=== PATIENT | male | born 1940 | race Caucasian/White ===

== ENCOUNTER → 2018-12-03 | Day surgery (SDC) | payer MEDICARE ==
[2018-12-02 12:11] LABS: BASOPHILS # (AUTO) 0.1 (0.0-0.1); BASOPHILS % 0.8 % (0.0-1.0); EOSINOPHILS # (AUTO) 0.2 (0.0-0.4); EOSINOPHILS % 2.5 % (0.0-6.0); HEMATOCRIT 47.5 % (38.2-49.6); HEMOGLOBIN 15.8 g/dL (14.0-18.0); LYMPHOCYTES # (AUTO) 1.3 (1.0-3.2); LYMPHOCYTES % 15.1 % (18.0-39.1); MEAN CORPUSCULAR HEMOGLOBIN 29.9 pg (28-32); MEAN CORPUSCULAR HGB CONC 33.3 g/dL (31-35); MONOCYTES # (AUTO) 0.9 (0.2-0.8); MONOCYTES % 9.6 % (4.4-11.3); NEUTROPHILS # (AUTO) 6.4 (2.1-6.9); NEUTROPHILS % 71.7 % (38.7-80.0); PLATELET COUNT 234 x10e3/uL (140-360); RED BLOOD COUNT 5.28 x10e6/uL (4.3-5.7); RED CELL DISTRIBUTION WIDTH 13.3 % (11.7-14.4)
--- NOTE | 2018-12-02 12:56 | Diagnostic Imaging Report ---
EXAMINATION: CHEST 2 VIEWS INDICATION: ^PER PROTOCOL ^PRE ADMIT COMPARISON: None FINDINGS: PA and lateral views TUBES and LINES: None. LUNGS: Limited by low lung volumes and body habitus. Bibasilar hazy opacities PLEURA: No significant pleural effusion or pneumothorax. HEART AND MEDIASTINUM: The cardiomediastinal silhouette is enlarged, accentuated by low lung volumes. BONES AND SOFT TISSUES: No acute osseous lesion. Soft tissues are unremarkable. UPPER ABDOMEN: No free air under the diaphragm. IMPRESSION: Bibasilar hazy opacities, representing atelectasis and/or pneumonia in the appropriate clinical setting. Signed by: Dr. Bryce Parikh MD on 12/02/2018 12:53 PM
[~2018-12-03] MED LIST: BELLADONNA/OPIUM 30 MG SUPP RC ONE; BOTULINUM TOXIN TYPE A 100 UNIT VIAL IM ONE; CEFTRIAXONE SOD 1 GM/NS 50 ML 50 ML IV ONE; CENTRUM SILVER1 EAC3 PO; CETIRIZINE HCL10 MG PO; DEXAMETHASONE SOD PHOS INJ 4 MG/ML VIAL ONE; DILTIAZEM 24HR180 M1 PO; GENTAMICIN 120MG/NS 100ML 100 ML ONE; IOPAMIDOL 610MG/1ML 300 MG/ML VIAL IV ONE; LIDOCAINE HCL 2% LOCAL INJ 5 ML SDV VIAL INJ ONE; METAMUCIL PLUS1 EACH PO; METOPROLOL SUCC25 MG PO; ONDANSETRON HCL INJ 2MG/ML 2ML 2 MG/ML VIAL ONE; PROBIOTIC & AC1 EACH PO; PROPOFOL IV EMULSION 10 MG/ML 20 ML VIAL ONE; RANITIDINE HCL300 MG PO; SEVOFLURANE INHAL SOLN 250 ML PEN BTL ONE; TOLTERODINE TART2 MG PO; XARELTO20 MG PO
--- OUTSIDE RECORDS SUMMARY | 2018-12-03 07:20 | XMS REPORT | Clinical Summary ---
Author Author [facility] Organization [facility] Address Unknown Phone Unavailable Care Team Providers Care [employer] Report Developer Name Role Phone Idalia Appiah MD PCP Allergies No Known Allergies Medications End Date Status Medication Sig Dispensed Refills Start Date Active TOPROL XL 25 mg 24 hr Take 25 mg by 0 09/04/ tablet mouth every 6 morning. Active ranitidine (ZANTAC) 300 Take 300 mg 0 10/19/201 MG tablet by mouth 6 nightly. Active DILT-XR 180 mg 24 hr Take 180 mg 0 10/23/ capsule by mouth 6 every morning. Active lactobacillus comb no.10 Take 1 0 (PROBIOTIC) 20 billion capsule by cell capsule mouth every morning. Active aspirin (ECOTRIN) 81 MG Take 81 mg by 0 enteric coated tablet mouth nightly. Active rivaroxaban (XARELTO) 15 Take 15 mg by 0 mg tablet mouth nightly. Active rosuvastatin (CRESTOR) 10 Take 10 mg by 0 09/23/201 MG tablet mouth 7 nightly. Active jddwiauw-zqg-NB-lycopen-l Take 1 tablet 0 utein (CENTRUM SILVER by mouth ULTRA MEN'S) 300-600-300 every mcg tablet morning. Active polyethylene glycol Take 17 g by 0 (MIRALAX) 17 gram packet mouth nightly as needed for constipation. Active cetirizine (ZyrTEC) 10 MG Take 10 mg by 0 tablet mouth every morning. 11/07/2019 Active hydrocortisone 1 % cream Apply 30 g 0 topically 2 8 (two) times a day. For itching 11/07/2019 Active olopatadine (PATANOL) 0.1 Administer 1 5 mL 3 % ophthalmic solution drop to both 8 eyes 2 (two) times a day. Or ears BID for itching 12/10/2017 Discontinued PSYLLIUM SEED, WITH Take 1 packet 0 SUGAR, (METAMUCIL ORAL) by mouth nightly. 12/10/2017 Discontinued cetirizine (ZyrTEC) 10 MG Take 10 mg by 0 tablet mouth every morning. 12/10/2017 Discontinued mupirocin (BACTROBAN) 2 % Apply 1 0 cream application 7 topically 3 (three) times a day. Apply to affected area on the leg three times a day 11/07/2018 Discontinued hydrocortisone 1 % cream Apply 30 g 0 topically 2 8 (two) times a day. For itching 11/07/2018 Discontinued olopatadine (PATANOL) 0.1 Administer 1 5 mL 3 % ophthalmic solution drop to both 8 eyes 2 (two) times a day. Or ears BID for itching Active Problems Problem Noted Date Chest pain 12/10/2017 Hearing loss, sensorineural 06/28/2017 Hydrocele of testis 02/08/2017 Benign non-nodular prostatic hyperplasia without lower urinary tract 02/08/2017 symptoms Diarrhea 02/01/2017 Dehydration 02/01/2017 Paroxysmal atrial fibrillation 12/05/2016 Epididymitis 12/05/2016 Scrotal swelling 11/20/2016 Generalized abdominal pain 11/20/2016 Encounters Care Team Description Date Type Specialty Juanita Millan MD Excessive cerumen in both ear canals (Primary Dx); Dermatitis of external ear; Allergic rhinitis, unspecified seasonality, unspecified trigger 11/07/2018 Office Visit Otolaryngology Kuldeep Schneider MD Disease of lung 07/10/2018 Hospital Radiology Encounter Kuldeep Schneider MD Disease of lung (Primary Dx) 07/05/2018 Transcribe Access Orders Robert Aldrich MD Severely overweight; Dietary counseling; Secondary hypertension 05/07/2018 Hospital Radiology Encounter Juanita Millan MD Chronic non-seasonal allergic rhinitis, unspecified trigger (Primary Dx); Sensorineural hearing loss, bilateral; Bilateral impacted cerumen 04/28/2018 Office Visit Otolaryngology Robert Aldrich MD Severely overweight (Primary Dx); Dietary counseling; Secondary hypertension 04/19/2018 Transcribe Access Orders Kuldeep Schenider MD Other disorders of lung (CODE) 01/14/2018 Hospital Radiology Encounter Kuldeep Schneider MD Other disorders of lung (CODE) (Primary Dx) 01/09/2018 Transcribe Access Orders Contreras Hernandez MD Kohlnhofer, Matthew, MD Chest pain, unspecified type (Primary Dx); Chronic kidney disease, unspecified CKD stage; Atrial fibrillation, unspecified type 12/10/2017 Emergency General Internal Medicine - 12/11/2017 after 12/02/2017 Immunizations Name Dates Previously Given Next Due Influenza Trivalent 12/28/2016 Pneumococcal Conjugate 12/28/2016 13-Valent Family History Medical History Relation Name Comments Heart failure Father Cancer Mother Relation Name Status Comments Father (Age 93) Mother (Age 63) Social History Date Tobacco Use Types Packs/Day Years Used 1852 - 1962 Former Smoker 10 Smokeless Tobacco: Never Used Comments: Patient states was smoking 3 pack per day for 10 years. Alcohol Use Drinks/Week oz/Week Comments Yes 7 Standard 4.2 drinks or equivalent Sex Assigned at Date Recorded Not on file Industry Job Start Date Occupation Not on file Not on file Not on file Travel End Travel History Travel Start No recent travel history available. Last Filed Vital Signs Time Taken Vital Sign Reading 11/07/2018 9:39 AM [employer] Blood Pressure 150/73 11/07/2018 9:39 AM [employer] Pulse 84 12/11/2017 11:10 AM [employer] Temperature 36.6 C (97.8 F) 12/11/2017 11:10 AM [employer] Respiratory Rate 16 12/11/2017 11:10 AM [employer] Oxygen Saturation 97% - Inhaled Oxygen - Concentration 11/07/2018 9:39 AM [employer] Weight 91.6 kg (202 lb) 11/07/2018 9:39 AM [employer] Height 180.3 cm (5' 11") 11/07/2018 9:39 AM [employer] Body Mass Index 28.17 Plan of Treatment Health Maintenance Due Date Last Done Comments SHINGLES VACCINES (1 of 02/29/1988 2) PNEUMOCOCCAL 2003 POLYSACCHARIDE VACCINE AGE 65 AND OVER INFLUENZA VACCINE 06/25/2018 12/28/2016 PNEUMOCOCCAL-13 Completed 12/28/2016 Procedures Comments Procedure Name Priority Date/Time Associated Diagnosis CT CHEST WO CONTRAST Routine 07/10/2018 Disease of lung 12:24 PM CDT US ABDOMEN COMPLETE Routine 05/07/2018 Severely overweight 11:09 AM CDT Dietary counseling Secondary hypertension CT CHEST WO CONTRAST Routine 01/14/2018 Other disorders of lung 5:33 PM [employer] (CODE) MAGNESIUM LEVEL Routine 12/11/2017 4:00 AM [employer] ZZESTIMATED GFR Routine 12/11/2017 4:00 AM [employer] COMPREHENSIVE METABOLIC Routine 12/11/2017 PANEL 4:00 AM [employer] HC COMPLETE BLD COUNT Routine 12/11/2017 W/AUTO DIFF 4:00 AM [employer] TROPONIN Timed 12/10/2017 7:30 PM [employer] ECG ED PRELIMINARY Routine 12/10/2017 INTERPRETATION 6:03 PM [employer] ECHOCARDIOGRAM 2D Routine 12/10/2017 COMPLETE W MMODE SPECTRAL 5:05 PM [employer] COLOR DOPPLER ([id number]) TROPONIN Timed 12/10/2017 3:35 [address] [address] ABDOMEN PELVIS WO STAT 12/10/2017 CONTRAST 1:43 PM [employer] URINALYSIS SCREEN AND STAT 12/10/2017 MICROSCOPY, WITH REFLEX 12:19 PM [employer] TO CULTURE URINE CULTURE STAT 12/10/2017 12:19 PM [employer] INFLUENZA ANTIGEN Routine 12/10/2017 11:43 AM [employer] D-DIMER STAT 12/10/2017 11:41 AM [employer] ZZESTIMATED GFR STAT 12/10/2017 11:41 AM [employer] B NATRIURETIC PEPTIDE STAT 12/10/2017 11:41 AM [employer] TROPONIN STAT 12/10/2017 11:41 AM [employer] MAGNESIUM LEVEL STAT 12/10/2017 11:41 AM [employer] PHOSPHORUS LEVEL STAT 12/10/2017 11:41 AM [employer] COMPREHENSIVE METABOLIC STAT 12/10/2017 PANEL 11:41 AM [employer] HC COMPLETE BLD COUNT STAT 12/10/2017 W/AUTO DIFF 11:41 AM [employer] ECG 12-LEAD STAT 12/10/2017 11:28 AM [employer] XR CHEST 2 VW STAT 12/10/2017 11:13 AM [employer] after 12/02/2017 Results * CT Chest Wo Contrast (07/10/2018 12:24 PM CDT) Only the most recent of 2 results within the time period is included. Narrative Performed At EXAMINATION: RADIANT CT CHEST WO CONTRAST CLINICAL HISTORY: J98.4 Other disorders of lung, J98.4 TECHNIQUE: Multiple axial images were obtained from the lung apices to the lung bases without the administration of intravenous contrast.The lack of intravenous contrast reduces the sensitivity of detecting solid organ disease and evaluating vasculature. Coronal and sagittal reformats were obtained.CT imaging was performed with iterative reconstruction technique and/or automated exposure control to reduce radiation dose. COMPARISON: 01/14/2018 FINDINGS: Heart size is markedly enlarged. Coronary artery calcification is seen The aorta is ectatic. Ascending aorta is 3.8 cm..The pulmonary artery is within normal limits. Precarinal 2.6 x 1.4 cm precarinal enlarged lymph node is seen. Numerous small and tiny mediastinal lymph nodes are present. Tiny area of parenchymal density in the right apex is unchanged. This is unchanged from 06/26/2017. Continued monitoring could be performed at one year to evaluate for continued stability (stability to two years). Several hypodensities in the liver are compatible with cysts and are unchanged. Patient is status post cholecystectomy. The pancreas, adrenals, and kidneys are normal in appearance. The lesion is unremarkable. Suspicious osseous lesion is not seen. Degenerative changes of spine are seen. IMPRESSION: Enlarged mediastinal lymph node. Stable right pulmonary nodule. Follow-up can be performed to evaluate for continued stability. Cardiomegaly. Aortic ectasia. Procedure Note Interface, Radiology Results Incoming - 07/10/2018 1:19 PM CDT EXAMINATION: CT CHEST WO CONTRAST CLINICAL HISTORY: J98.4 Other disorders of lung, J98.4 TECHNIQUE: Multiple axial images were obtained from the lung apices to the lung bases without the administration of intravenous contrast.The lack of intravenous contrast reduces the sensitivity of detecting solid organ disease and evaluating vasculature. Coronal and sagittal reformats were obtained.CT imaging was performed with iterative reconstruction technique and/or automated exposure control to reduce radiation dose. COMPARISON: 01/14/2018 FINDINGS: Heart size is markedly enlarged. Coronary artery calcification is seen The aorta is ectatic. Ascending aorta is 3.8 cm.. The pulmonary artery is within normal limits. Precarinal 2.6 x 1.4 cm precarinal enlarged lymph node is seen. Numerous small and tiny mediastinal lymph nodes are present. Tiny area of parenchymal density in the right apex is unchanged. This is unchanged from 06/26/2017. Continued monitoring could be performed at one year to evaluate for continued stability (stability to two years). Several hypodensities in the liver are compatible with cysts and are unchanged. Patient is status post cholecystectomy. The pancreas, adrenals, and kidneys are normal in appearance. The lesion is unremarkable. Suspicious osseous lesion is not seen. Degenerative changes of spine are seen. IMPRESSION: Enlarged mediastinal lymph node. Stable right pulmonary nodule. Follow-up can be performed to evaluate for continued stability. Cardiomegaly. Aortic ectasia. Performing Organization Address City/State/Zipcode Phone Number [facility] [address] [place] [address] * US Abdomen Complete (05/07/2018 11:09 AM CDT) Narrative Performed At EXAM: US ABDOMEN COMPLETE [facility] CLINICAL DATA: 78 years Male E66.3 Overweight, Z71.3 Dietary counseling and surveillance, E66.3 Z71.3 I10 R14.0 COMPARISON: NONE. FINDINGS: There is a complex septated cyst along the anterior margin of the left lobe of the liver measuring approximately 3.5 x 2.8 x 2.9 cm. An additional left lobe cyst measuring 1.4 cm in maximum dimension is also noted. The liver elsewhere is echogenic and heterogeneous no solid lesions are identified. The main portal vein measures 9 mm which is within the range of normal. Flow is hepatopedal. The gallbladder has been removed. The common duct measures 8 mm which is necessary abnormal post cholecystectomy. The right kidney measures 11.5 cm length 4.5 cm AP dimension 5.8 cm in width. Cortical mantle thickness is 1.2 cm. The left kidney measures 10.2 cm in length 5.3 cm AP dimension 5.7 cm in width. Cortical mantle thickness is 1.3 cm. There is no contour deforming mass or obstruction involving either kidney. There is a lower pole cyst on the left measuring approximately 2 cm in maximum dimension. The spleen appears normal in size and texture. The visualized portion of the pancreas appears unremarkable although it is moderately echogenic. The aorta and vena cava are poorly visualized distally although they appear unremarkable to the limits of visualization. IMPRESSION: IMPRESSION: 1. Post cholecystectomy. 2. Septated cysts in the left lobe of the liver the largest of which measures 3.5 cm in maximum dimension. 3. Cyst lower pole of the left kidney measuring approximately 2 cm in maximum dimension. [id number] Procedure Note Hm Interface, Radiology Results Incoming - 05/07/2018 4:04 PM CDT EXAM: US ABDOMEN COMPLETE CLINICAL DATA: 78 years Male E66.3 Overweight, Z71.3 Dietary counseling and surveillance, E66.3 Z71.3 I10 R14.0 COMPARISON: NONE. FINDINGS: There is a complex septated cyst along the anterior margin of the left lobe of the liver measuring approximately 3.5 x 2.8 x 2.9 cm. An additional left lobe cyst measuring 1.4 cm in maximum dimension is also noted. The liver elsewhere is echogenic and heterogeneous no solid lesions are identified. The main portal vein measures 9 mm which is within the range of normal. Flow is hepatopedal. The gallbladder has been removed. The common duct measures 8 mm which is necessary abnormal post cholecystectomy. The right kidney measures 11.5 cm length 4.5 cm AP dimension 5.8 cm in width. Cortical mantle thickness is 1.2 cm. The left kidney measures 10.2 cm in length 5.3 cm AP dimension 5.7 cm in width. Cortical mantle thickness is 1.3 cm. There is no contour deforming mass or obstruction involving either kidney. There is a lower pole cyst on the left measuring approximately 2 cm in maximum dimension. The spleen appears normal in size and texture. The visualized portion of the pancreas appears unremarkable although it is moderately echogenic. The aorta and vena cava are poorly visualized distally although they appear unremarkable to the limits of visualization. IMPRESSION: IMPRESSION: 1. Post cholecystectomy. 2. Septated cysts in the left lobe of the liver the largest of which measures 3.5 cm in maximum dimension. 3. Cyst lower pole of the left kidney measuring approximately 2 cm in maximum dimension. [id number] Performing Organization Address City/State/Zipcode Phone Number [employer] [address] [place] [address] * Estimated GFR (12/11/2017 4:00 AM [employer]) Only the most recent of 2 results within the time period is included. GFR Non Af Amer 53 (A) mL/min/1.73 m2 [facility] DEPARTMENT OF PATHOLOGY AND GENOMIC MEDICINE GFR Af Amer 64 mL/min/1.73 m2 [facility] DEPARTMENT OF Comment: PATHOLOGY AND Chronic kidney disease: <60 GENOMIC MEDICINE mL/min/1.73m2 Kidney failure: <15 mL/min/1.73m2 The estimated GFR is calculated from the IDMS-traceable Modification of Diet in Renal Disease Equation. The accuracy of the calculation is poor when the creatinine is normal. Calculated values >90 mL/min/1.73m2 are not reported. This equation has not been validated in children (<18 years), women, the elderly (>70 years), or ethnic groups other than Caucasians and Americans. Specimen Plasma specimen Performing Organization Address City/State/Zipcode Phone Number [facility] [id number] [place] [address] PATHOLOGY [facility] * CBC with platelet and differential (12/11/2017 4:00 AM [employer]) Only the most recent of 2 results within the time period is included. WBC 8.06 4.50 - 11.00 k/uL [facility] DEPARTMENT OF PATHOLOGY AND GENOMIC MEDICINE RBC 4.84 4.40 - 6.00 m/uL [facility] DEPARTMENT OF PATHOLOGY AND GENOMIC MEDICINE HGB 14.6 14.0 - 18.0 g/dL [facility] DEPARTMENT OF PATHOLOGY AND GENOMIC MEDICINE HCT 43.1 41.0 - 51.0 % [facility] DEPARTMENT OF PATHOLOGY AND GENOMIC MEDICINE MCV 89.0 82.0 - 100.0 fL [facility] DEPARTMENT OF PATHOLOGY AND GENOMIC MEDICINE MCH 30.2 27.0 - 34.0 pg [facility] DEPARTMENT OF PATHOLOGY AND GENOMIC MEDICINE MCHC 33.9 31.0 - 37.0 g/dL [facility] DEPARTMENT OF PATHOLOGY AND GENOMIC MEDICINE RDW - SD 41.3 37.0 - 55.0 fL [facility] DEPARTMENT OF PATHOLOGY AND GENOMIC MEDICINE MPV 11.2 8.8 - 13.2 fL [facility] DEPARTMENT OF PATHOLOGY AND [facility] MEDICINE Platelet count 228 150 - 400 k/uL [facility] DEPARTMENT OF PATHOLOGY AND GENOMIC MEDICINE Nucleated RBC 0.00 /100 WBC [facility] DEPARTMENT OF PATHOLOGY AND GENOMIC MEDICINE Neutrophils 60.2 39.0 - 69.0 % [facility] DEPARTMENT OF PATHOLOGY AND GENOMIC MEDICINE Lymphocytes 20.8 (L) 25.0 - 45.0 % [facility] DEPARTMENT OF PATHOLOGY AND GENOMIC MEDICINE Monocytes 8.3 0.0 - 10.0 % [facility] DEPARTMENT OF PATHOLOGY AND GENOMIC MEDICINE Eosinophils 9.2 (H) 0.0 - 5.0 % [facility] DEPARTMENT OF PATHOLOGY AND [facility] MEDICINE Basophils 1.1 (H) 0.0 - 1.0 % [facility] DEPARTMENT PATHOLOGY AND GENOMIC MEDICINE Immature granulocytes 0.4Comment: "Immature 0.0 - 1.0 % [facility] DEPARTMENT granulocytes" (promyelocytes, PATHOLOGY AND myelocytes, metamyelocytes) [facility] Specimen Blood Performing Organization Address City/[facility] Phone Number [address] [place] [address] PATHOLOGY [facility] * Magnesium level (12/11/2017 4:00 AM [employer]) Only the most recent of 2 results within the time period is included. Magnesium 2.0 1.6 - 2.4 mg/dL [facility] PATHOLOGY AND GENOMIC MEDICINE Specimen Plasma specimen Performing Organization Address City/[facility] Phone Number [address] [place] [address] PATHOLOGY [facility] * Comprehensive metabolic panel (12/11/2017 4:00 AM [employer]) Only the most recent of 2 results within the time period is included. Sodium 139 135 - 148 mEq/L [facility] DEPARTMENT OF PATHOLOGY AND GENOMIC MEDICINE Potassium 4.0 3.5 - 5.0 mEq/L [facility] DEPARTMENT OF PATHOLOGY AND GENOMIC MEDICINE Chloride 104 98 - 112 mEq/L [facility] DEPARTMENT OF PATHOLOGY AND GENOMIC MEDICINE CO2 23 (L) 24 - 31 mEq/L [facility] DEPARTMENT OF PATHOLOGY AND GENOMIC MEDICINE Anion gap 12 7 - 15 mEq/L [facility] DEPARTMENT OF Comment: PATHOLOGY AND Starting from February GENOMIC MEDICINE , anion gap calculation no longer incorporates potassium. Please note the change. BUN 17 8 - 23 mg/dL [facility] DEPARTMENT OF PATHOLOGY AND GENOMIC MEDICINE Creatinine 1.3 (H) 0.7 - 1.2 mg/dL [facility] OF PATHOLOGY AND GENOMIC MEDICINE Glucose 155 (H) 65 - 99 mg/dL [facility] OF PATHOLOGY AND GENOMIC MEDICINE Calcium 8.7 (L) 8.8 - 10.2 mg/dL [facility] OF PATHOLOGY AND GENOMIC MEDICINE Protein 6.5 6.3 - 8.3 g/dL [facility] DEPARTMENT OF Comment: PATHOLOGY AND GENOMIC MEDICINE 4.6-7.0 g/dL 1 week 4.4-7.6 g/dL 7 months-1year 5.1-7.3 g/dL 1-2 years5.6-7 .5 g/dL >3 years6.0-8 .0 g/dL 18-150 6.3-8.3 g/dL Albumin 3.9 3.5 - 5.0 g/dL [facility] OF PATHOLOGY AND GENOMIC MEDICINE A/G ratio 1.5 0.7 - 3.8 [facility] OF PATHOLOGY AND GENOMIC MEDICINE Alkaline phosphatase 58 40 - 129 U/L [facility] DEPARTMENT OF PATHOLOGY AND GENOMIC MEDICINE AST 16 10 - 50 U/L [facility] DEPARTMENT OF PATHOLOGY AND GENOMIC MEDICINE ALT 16 5 - 50 U/L [facility] PATHOLOGY AND GENOMIC MEDICINE Total bilirubin 0.4 0.0 - 1.2 mg/dL [facility] OF PATHOLOGY AND GENOMIC MEDICINE Specimen Plasma specimen Performing Organization Address City/[facility] Phone Number [facility] DEPARTMENT [phone] [place] [address] PATHOLOGY AND GENOMIC MEDICINE * Troponin (12/10/2017 7:30 PM [employer]) Only the most recent of 3 results within the time period is included. Troponin <0.300 0.000 - 0.300 ng/mL [facility] DEPARTMENT OF Comment: PATHOLOGY AND 0.30 - 1.49 GENOMIC MEDICINE ng/mlMay indicate increased risk of acute coronary syndrome. >=1.5 ng/ml Consistent with acute myocardial infarction. The diagnostic value of a single normal or non-diagnostic result is questionable.Serial samples at 2-6 hour intervals are required to rule out acute myocardial injury. Specimen Plasma specimen Performing Organization Address City/[facility] [place] [address] [place] [address] PATHOLOGY AND GENOMIC MEDICINE * ECG ED Preliminary Interpretation - NOT AN ORDER (12/10/2017 6:03 PM [employer]) Narrative Performed At Contreras Hernandez MD 12/10/20176:03 PM ECG ED Preliminary Interpretation - Not an Order Performed by: CONTRERAS HERNANDEZ Authorized by: CONTRERAS EHRNANDEZ ECG reviewed by ED Physician in the absence of a hip hop artist: yes Interpretation: Interpretation: abnormal Rate: ECG rate:68 ECG rate assessment: normal Rhythm: Rhythm: atrial fibrillation QRS: QRS axis:Left Conduction: Conduction: normal ST segments: ST segments:Non-specific T waves: T waves: inverted Inverted:III * Echocardiogram complete w contrast and 3D if needed (12/10/2017 5:05 PM [employer]) Velocity Ratio (V1/V2) 0.79 m/s [facility] IVS,d 1.30 (A) 0.6 - 1.2 cm [facility] EF 44.96 % [facility] LA volume 59.0 cm3 [facility] LVPWD,d 1.30 cm [facility] AoV Mean PG 3.13 mmHg [facility] AV LVOT peak gradient 3.35 mmHg [facility] MV valve area p 1/2 5.44 cm2 [facility] method LVOT Diam,S 2.02 cm [facility] LVOT area 3.20 cm2 [facility] LVOT Vmax 0.91 m/s [facility] LVOT VTI 0.19 m [facility] AoV Peak PG 5.30 mmHg [facility] MV stenosis pressure 1/2 40.47 ms [facility] time LV Vol,s A2C 56.68 mL [facility] LV Systolic Volume Index 27.12 mL/m2 [facility] LV Vol,d A2C 112.83 mL [facility] LV Diastolic Volume Index 53.99 mL/m2 [facility] LA Volume Index 28.23 mL/m2 [facility] BSA 2.09 m2 [facility] AoV Area, Vmax 2.53 cm2 [facility] AoV Area, VTI 2.77 cm2 [facility] AoV Vmax 1.15 m/s [facility] BSA Zhou 2.12 m2 [facility] BSA Haycock 2.12 m2 [facility] IVS/LVPW,2D 1.00 [facility] LA Area d A4C 76 cm2 [facility] LV,d 5.25 cm [facility] LV,s 4.07 cm [facility] LV Vol,d A4C 109.03 ml [facility] LV Vol,s A4C 64.67 ml [facility] RVSP (TR) 35.30 mmHg [facility] TR Vpeak 2.75 mm/s [facility] BMI 27.20 kg/m2 [facility] RA pressure 5.00 mmHg [facility] TR pk grad 23.61 mmHg [facility] AoV area i VTI BSA Basil 1.33 cm2/m2 [facility] MR peak grad 76.72 mmHg [facility] RVSP 35.30 mmHg [facility] AR Press Half Time 920.53 ms [facility] LV SYS VOL 72.83 ml [facility] LV HORNER VOL 132.32 ml [facility] LA diam s 3.50 cm [facility] LA Vol MOD A4C 75.78 ml [facility] LV SI Teich 2D 28.52 ml/m2 [facility] LV SV Teich 2D 59.50 ml [facility] LV Vol s Teich PSAX 72.83 ml [facility] LVOT SI 28.77 ml/m2 [facility] AoV Cusp sep 1.98 [facility] Aortic Root 3.17 cm [facility] AoV Vmn 0.86 [facility] AR slope 1.53 [facility] Ar Vmax 4.86 [facility] IVS s 2D 1.40 [facility] LA Ao Ratio Mmode 1.12 [facility] LV FS Cube 2D 22.51 [facility] LV FS Teich 2D 22.51 [facility] NV End Horner Grad 2.32 [facility] NV End Diat Geoffrey 0.76 [facility] AR maxPG 94.35 [facility] D E excurs 1.20 [facility] E f slope 0.11 [facility] PV acc T slope 4.60 [facility] PV AT 107.27 msec [facility] AoV VTI 0.22 m [facility] LV EF,2D 53.46 % [facility] LV EF,A2C 49.76 % [facility] LV EF,A4C 40.68 % [facility] LV EF,BP 45.35 % [facility] Axel Patton,d A2C 7.25 cm [facility] Axel Patton,d A4C 7.69 cm [facility] Axel Patton,s A2C 6.40 cm [facility] Axel Patton,s A4C 6.78 cm [facility] LV SV,A2C 56.15 % [facility] LV SV,A4C 44.36 % [facility] LV SV,BP 51.65 % [facility] LV Vol,d BP 113.89 ml [facility] LV Vol,s BP 62.24 nl [facility] LV SI MOD BP BSA Basil 24.76 ml/m2 [facility] LV Vol Index s bpmod BSA 54.59 ml/m2 [facility] [place] PV Vmn 29.83 m/s [facility] MR Vmax 4.38 m/s [facility] LVOT Vmn 0.67 [facility] Pt Size 180.34 [facility] Pt Wt 88.45 [facility] Aov area Vmn 2.50 cm2 [facility] LVOT mean grad 2.01 mmHg [facility] AoV area I VMN bsa 1.20 cm2/m2 [facility] AR DT 3,174.25 msec [facility] AR pk grad 94.35 mmHg [facility] IVS pct thck PLAX 7.50 % [facility] LV SI Cube 2D 37.05 ml/m2 [facility] LV SV Cube 2D 77.30 ml [facility] LV vol d cube 2D 144.58 ml [facility] LV vol s cube 2D 67.28 ml [facility] LVPW pct thck PLAX 18.04 % [facility] LVPW s PLAX 1.54 cm [facility] Narrative Performed At [facility] Atrial fibrillation The left ventricle chamber size is normal. There is mild left ventricular concentric hypertrophy. Left Ventricular ejection fraction is 45 - 50%. Right ventricular size is normal. No pericardial effusion Mild mitral valve regurgitation There is mild sclerosis of the aortic valve leaflets. Unable to assess diastolic filling. Performing Organization Address City/State/Zipcode Phone Number [facility] [address] [place] [address] * CT Abdomen Pelvis Wo Contrast (12/10/2017 1:43 PM SUPPRESSION CREW LEADER) Narrative Performed At EXAMINATION:CT ABDOMEN PELVIS WO CONTRAST [facility] CLINICAL HISTORY:77 years Male abdominal painhernia TECHNIQUE:Multiple axial images of the abdomen and pelvis were obtained without intravenous administration of iodinated contrast. Sagittal and coronal computerized reformatted images were also obtained. The lack of intravenous contrast reduces the sensitivity of detecting solid organ disease. CT imaging was performed with iterative reconstruction techniques and/or automated exposure control to reduce radiation dose. COMPARISON:None. FINDINGS: There is mild dependent atelectasis at the lung bases. The liver contains a 2.7 x 2.3 cm bilobed cyst in the left lobe. There are additional smaller areas of low-attenuation within the liver too small to characterize with a probable 1 cm cyst in the caudate lobe. The spleen appears normal in size and homogeneous in texture. The adrenal glands, pancreas appear within normal limits. The right kidney is not obstructed no calculi are identified. There is mild stranding around the left kidney with an area of low attenuation near the lower pole with what may be a parapelvic cyst measuring nearly 2 cm. This is not definitively characterized without contrast administration. However it has a low level suspicion. 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 The appendix appears normal. There is diverticulosis moderate degree with no evidence of diverticulitis. There appears to havebeen a previous prostatectomy surgical clips in the area of the prostate. There are small bilateral inguinal hernias with fat in the defects slightly larger on the right. IMPRESSION: 1. Hepatic cysts the largest of which measures 2.7 x 2.3 cm in the left lobe with additional smaller probable cysts although some of these are too small to definitively characterize. 2. No obstructing calculi are identified on either side. 3. Probable parapelvic cyst lower pole of the left kidney measuring approximately 2 cm. 4. Post apparent prostatectomy 5. Small bilateral inguinal hernias with fat in the defects on both sides slightly greater on the right [id number] Procedure Note Hm Interface, Radiology Results Incoming - 12/10/2017 2:07 PM SUPPRESSION CREW LEADER EXAMINATION: CT ABDOMEN PELVIS WO CONTRAST CLINICAL HISTORY:77 years Male abdominal pain hernia TECHNIQUE: Multiple axial images of the abdomen and pelvis were obtained without intravenous administration of iodinated contrast. Sagittal and coronal computerized reformatted images were also obtained. The lack of intravenous contrast reduces the sensitivity of detecting solid organ disease. CT imaging was performed with iterative reconstruction techniques and/or automated exposure control to reduce radiation dose. COMPARISON: None. FINDINGS: There is mild dependent atelectasis at the lung bases. The liver contains a 2.7 x 2.3 cm bilobed cyst in the left lobe. There are additional smaller areas of low-attenuation within the liver too small to characterize with a probable 1 cm cyst in the caudate lobe. The spleen appears normal in size and homogeneous in texture. The adrenal glands, pancreas appear within normal limits. The right kidney is not obstructed no calculi are identified. There is mild stranding around the left kidney with an area of low attenuation near the lower pole with what may be a parapelvic cyst measuring nearly 2 cm. This is not definitively characterized without contrast administration. However it has a low level suspicion. 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 The appendix appears normal. There is diverticulosis moderate degree with no evidence of diverticulitis. There appears to have been a previous prostatectomy surgical clips in the area of the prostate. There are small bilateral inguinal hernias with fat in the defects slightly larger on the right. IMPRESSION: 1. Hepatic cysts the largest of which measures 2.7 x 2.3 cm in the left lobe with additional smaller probable cysts although some of these are too small to definitively characterize. 2. No obstructing calculi are identified on either side. 3. Probable parapelvic cyst lower pole of the left kidney measuring approximately 2 cm. 4. Post apparent prostatectomy 5. Small bilateral inguinal hernias with fat in the defects on both sides slightly greater on the right [id number] Performing Organization Address City/State/Zipcode Phone Number [facility] [address] [place] [address] * Urinalysis screen and microscopy, with reflex to culture (12/10/2017 12:19 PM SUPPRESSION CREW LEADER) Specimen site Clean catch [facility] DEPARTMENT OF PATHOLOGY AND GENOMIC MEDICINE Color, UA Yellow [facility] DEPARTMENT OF PATHOLOGY AND GENOMIC MEDICINE Appearance, UA Clear [facility] DEPARTMENT OF PATHOLOGY AND GENOMIC MEDICINE Specific gravity, UA 1.011 1.001 - 1.035 [facility] DEPARTMENT OF PATHOLOGY AND GENOMIC MEDICINE pH, UA 5.0 5.0 - 8.5 [facility] DEPARTMENT OF PATHOLOGY AND GENOMIC MEDICINE Protein, UA Negative Negative [facility] DEPARTMENT OF PATHOLOGY AND GENOMIC MEDICINE Glucose, UA Negative Negative [facility] DEPARTMENT OF PATHOLOGY AND GENOMIC MEDICINE Ketones, UA Negative Negative [facility] DEPARTMENT OF PATHOLOGY AND GENOMIC MEDICINE Bilirubin, UA Negative Negative [facility] DEPARTMENT OF PATHOLOGY AND GENOMIC MEDICINE Blood, UA Small (A) Negative [facility] DEPARTMENT OF PATHOLOGY AND GENOMIC MEDICINE Nitrite, UA Negative Negative [facility] DEPARTMENT OF PATHOLOGY AND GENOMIC MEDICINE Urobilinogen, UA Negative <2.0 [facility] DEPARTMENT OF PATHOLOGY AND GENOMIC MEDICINE Leukocyte esterase, UA Negative Negative [facility] DEPARTMENT OF PATHOLOGY AND GENOMIC MEDICINE WBC, UA None seen 0 - 1 /HPF [facility] DEPARTMENT OF PATHOLOGY AND GENOMIC MEDICINE RBC, UA 0-5 0 - 1 /HPF [facility] DEPARTMENT OF PATHOLOGY AND GENOMIC MEDICINE Bacteria, UA None seen None seen [facility] DEPARTMENT OF PATHOLOGY AND GENOMIC MEDICINE Yeast, UA None seen [facility] DEPARTMENT OF PATHOLOGY AND GENOMIC MEDICINE Yeast with pseudohyphae, None seen [facility] DEPARTMENT OF UA PATHOLOGY AND GENOMIC MEDICINE Specimen Urine Performing Organization Address [facility] Phone Number [address] [place] [address] PATHOLOGY AND GENOMIC MEDICINE * Urine culture (12/10/2017 12:19 PM SUPPRESSION CREW LEADER) Urine culture SEE COMMENTComment: [facility] DEPARTMENT OF Bacteriuria screen negative. PATHOLOGY AND [facility] Specimen Urine Performing Organization Address [facility] [place] Phone Number [address] [place] [address] PATHOLOGY AND [facility] * Influenza antigen (12/10/2017 11:43 AM SUPPRESSION CREW LEADER) Influenza antigen Negative for Influenza A/B [facility] DEPARTMENT OF antigen. PATHOLOGY AND Comment: GENOMIC MEDICINE Specimen Information Specimen Source: Nares Specimen Site: Right and left lobes Specimen Nares - Right and left lobes Performing Organization Address [facility] Phone Number [address] [place] [address] PATHOLOGY AND GENOMIC MEDICINE * D-dimer (12/10/2017 11:41 AM SUPPRESSION CREW LEADER) D-dimer <0.27 0.00 - 0.40 ug/mL FEU [facility] DEPARTMENT OF Comment: PATHOLOGY AND Units are ug/ml Fibrinogen [facility] Equivalent Unit. When combined with low clinical probability, D-dimer results of less than 0.5 ug/ml FEU have a good negativepredictive value in excluding PE or DVT. For D-dimer results greater than 0.5ug/ml FEU further testing is indicated if PE or DVT is suspectedclinically. Elevated D-dimer results have been reported in DVT, PE, and DIC cases and may indicate the presence of a clot. D-dimer results may be elevated due to old age, , inflammatory diseases, trauma, post-operative states, sepsis, and malignancies. Specimen Blood Performing Organization Address [facility] Phone Number [address] [place] [address] PATHOLOGY AND [facility] * Phosphorus level (12/10/2017 11:41 AM SUPPRESSION CREW LEADER) Phosphorus 3.4 2.4 - 4.5 mg/dL [facility] PATHOLOGY AND [facility] Specimen Plasma specimen Performing Organization Address [facility] [place] Phone Number [address] [place] [address] PATHOLOGY AND [facility] * B natriuretic peptide (12/10/2017 11:41 AM SUPPRESSION CREW LEADER) BNP 184 (H) 0 - 100 pg/mL [facility] OF PATHOLOGY AND [facility] Specimen Blood Performing Organization Address [facility] [place] Phone Number [address] [place] [address] PATHOLOGY AND [facility] * ECG 12 lead (12/10/2017 11:28 AM SUPPRESSION CREW LEADER) Ventricular rate 68 [facility] Atrial rate 75 [facility] QRSD interval 110 [facility] QT interval 388 [facility] QTC interval 412 [facility] MUSE QRS axis 1 -38 [facility] T wave axis 1 [facility] MUSE EKG impression Atrial fibrillation-Left axis [facility] MUSE deviation-Minimal voltage criteria for LVH, may be normal variant-Nonspecific ST abnormality , probably digitalis effect-Abnormal ECG-In automated comparison with ECG of 25-SEP-2017 12:17,-No significant change was found- Performing Organization Address [facility] Phone Number [facility] MUSE [address] [place] [address] * XR Chest 2 Vw (12/10/2017 11:13 AM SUPPRESSION CREW LEADER) Narrative Performed At EXAMINATION:XR CHEST 2 VW [facility] CLINICAL HISTORY:Chest Pain COMPARISON:09/25/2017 IMPRESSION: 1.The heart size is slightly enlarged. The aorta is atherosclerotic. 2.There is no evidence of pulmonary edema. There are no focal consolidations or effusions. 3.Marginal osteophytes are seen in the midthoracic spine. 4.Status post cholecystectomy. Procedure Note Hm Interface, Radiology Results Incoming - 12/10/2017 11:18 AM SUPPRESSION CREW LEADER EXAMINATION: XR CHEST 2 VW CLINICAL HISTORY: Chest Pain COMPARISON: 09/25/2017 IMPRESSION: 1. The heart size is slightly enlarged. The aorta is atherosclerotic. 2. There is no evidence of pulmonary edema. There are no focal consolidations or effusions. 3. Marginal osteophytes are seen in the midthoracic spine. 4. Status post cholecystectomy. Performing Organization Address City/State/Zipcode Phone Number [facility] [address] [place] [address] after 12/02/2017 Insurance Payer Benefit Subscriber ID Type Phone Address Plan / Group AETNA MEDICARE AETNA xxxxxxxx HMO MEDICARE HMO/PPO [facility] Advance Directives Patient has advance care planning documents, and code status on file. For more i nformation, please contact: Charlie Serrano [address] [place] [address] Date Inactivated Comments Code Status Date Activated 12/11/2017 7:01 PM Full Code 12/10/2017 3:33 PM Code Status decision reached by: Patient
--- OUTSIDE RECORDS SUMMARY | 2018-12-03 07:20 | XMS REPORT ---
Author Author [facility] Address Unknown Phone Unavailable Care Team Providers Care Calender Wind Up Tender Name Role Phone YOEL MAJOR Unavailable Unavailable Problems This patient has no known problems. Allergies, Adverse Reactions, Alerts This patient has no known allergies or adverse reactions. Medications This patient has no known medications. Results Test Description Test Time Test Comments Text Results Atomic Results Result Comments CHEST 2 VIEWS 2018-12-02 12:51:00 [place] [address] Patient Name: JULIAN PARSONS MR #: [id number] : 1940 Age/Sex: 78/M Req #: [id number] Adm Physician: Ordered by: YOEL MAJOR MD Report #: [id number] Location: OR Room/Bed: Procedure: [id number] DX/CHEST 2 VIEWS Exam Date: Exam Time: REPORT STATUS: Signed EXAMINATION: CHEST 2 VIEWS INDICATION: PER PROTOCOL PRE ADMIT COMPARISON: None FINDINGS: PA and lateral views TUBES and LINES: None. LUNGS: Limited by low lung volumes and body habitus. Bibasilar hazy opacities PLEURA: No significant pleural effusion or pneumothorax. HEART AND MEDIASTINUM: The cardiomediastinal silhouette is enlarged, accentuated by low lung volumes. BONES AND SOFT TISSUES: No acute osseous lesion. Soft tissues are unremarkable. UPPER ABDOMEN: No free air under the diaphragm. IMPRESSION: Bibasilar hazy opacities, representing atelectasis and/or pneumonia in the appropriate clinical setting. Signed by: Dr. Bryce Parikh MD on 12/02/2018 12:53 PM Dictated By: BRYCE PARIKH MD [id number] Transcribed By: DAKSHA on 12/02/18 1253 COPY TO: YOEL MAJOR MD
[2018-12-03 11:15] VITALS: BP 149/85
--- NOTE | 2019-01-19 09:17 | Operative Report ---
DATE OF PROCEDURE: 12/03/2018 SURGEON: Jeronimo Wadsworth MD PREOPERATIVE DIAGNOSES: 1. Refractory urge incontinence. 2. Hyperreflexic bladder. POSTOPERATIVE DIAGNOSES: 1. Refractory urge incontinence. 2. Hyperreflexic bladder. OPERATION PERFORMED: 1. Cystourethroscopy with bilateral ureteral catheterization and retrograde ureteropyelography ( performed for overactive bladder). 2. Interpretation of retrograde ureteropyelography. 3. Supervision of fluoroscopy, no radiologist present. 4. Cystourethroscopy with intravesical injection of Botox (several procedures performed for the diagnosis of the refractory incontinence). ANESTHESIA: General. COMPLICATIONS: None. CLINICAL SUMMARY: Gunnar Taylor is an 78-year-old man. He is status radical retropubic prostatectomy in 2002. The patient has had refractory incontinence that is mixed in nature. He also has a hyperreflexic bladder. He is brought for the above procedures. He is aware of the risks of bleeding, infection, injury to adjacent structures, and need for additional procedures and elected to proceed. PROCEDURE IN DETAIL: Informed consent was verified. Gunnar Taylor was preoperatively identified, taken to the operating room, and placed on the cystoscopy table in supine position. Anesthesia was uneventfully begun. The patient was then carefully and gently repositioned in dorsal lithotomy position with all pressure points well padded. His genitalia were prepared and draped in usual sterile fashion. A 22.5-Indonesian cystoscope sheath with a visual obturator in place was atraumatically inserted into the patient's urethra. It was guided unremarkably into urethra through the normal sphincter region that appeared to be intact through a wide open anastomosis and into the patient's bladder, where panendoscopy revealed mild trabeculation, but no tumors, no stones, and no diverticula. Normally positioned and configurative ureteral orifices were identified. Due to the patient's overactive bladder and hyperreflexic bladder, we intend to study the upper tract. Therefore, an 8-Indonesian catheter was used to cannulate each ureter and retrograde ureteropyelograms were performed. Interpretation Of Retrograde Ureteropyelography: Contrast was instilled in retrograde fashion bilaterally. There were no tumors, no stones, and no diverticula. Unobstructed drainage was observed bilaterally fluoroscopically. Botox was then injected. 100 units of Botox were dissolved in 10 mL of sterile saline. We then injected in an even distribution 0.5 mL aliquots throughout the supratrigonal bladder. One point of injection had persistent bleeding. We therefore utilized the Bugbee electrode to fulgurate that one point with resolution of the bleeding. The patient's bladder was then drained and cystoscopy was withdrawn. Belladonna and Opium suppository was placed and the patient was uneventfully reversed from anesthesia and taken to recovery room in stable condition. There were no complications to the procedure. He tolerated the procedure well. Exclusive postoperative instructions were given. We will follow the patient up in the office. Jeronimo Wadsworth MD [place]/MODL /[id number] cc: Idalia Appiah MD
== END | disposition home or self-care (01) ==
LOC: OR 07:18
PROVIDERS: ATTEND Urology
DX: N39.41 Urge incontinence (principal); N32.81 Overactive bladder; Z90.79 Acquired absence of other genital organ(s); N32.89 Other specified disorders of bladder; G47.33 Obstructive sleep apnea (adult) (pediatric); I10 Essential (primary) hypertension; I25.10 Atherosclerotic heart disease of native coronary artery without angina pectoris; I48.91 Unspecified atrial fibrillation; K44.9 Diaphragmatic hernia without obstruction or gangrene; K21.9 Gastro-esophageal reflux disease without esophagitis; K57.90 Diverticulosis of intestine, part unspecified, without perforation or abscess without bleeding; M54.9 Dorsalgia, unspecified; Z01.810 Encounter for preprocedural cardiovascular examination; Z01.812 Encounter for preprocedural laboratory examination; Z01.818 Encounter for other preprocedural examination; Z79.02 Long term (current) use of antithrombotics/antiplatelets; Z85.46 Personal history of malignant neoplasm of prostate; Z87.891 Personal history of nicotine dependence
CPT/HCPCS: 36415; 52005; 52287; 71046; 74420; 85025; 93005; C1758; J0587; J0696; J1100; J1580; J2001; J2405; J2704; Q9967

== ENCOUNTER → 2019-06-10 | Day surgery (SDC) | payer MEDICARE ==
[2019-06-09 16:38] LABS: BASOPHILS % 0.1 % (0.0-1.0); HEMATOCRIT 45.7 % (38.2-49.6); HEMOGLOBIN 15.4 g/dL (14.0-18.0); LYMPHOCYTES # (AUTO) 0.8 (1.0-3.2); LYMPHOCYTES % 5.2 % (18.0-39.1); MEAN CORPUSCULAR HEMOGLOBIN 30.4 pg (28-32); MEAN CORPUSCULAR HGB CONC 33.7 g/dL (31-35); MEAN CORPUSCULAR VOLUME 90.3 fL (81-99); MONOCYTES # (AUTO) 0.9 (0.2-0.8); MONOCYTES % 5.4 % (4.4-11.3); NEUTROPHILS # (AUTO) 14.4 (2.1-6.9); NEUTROPHILS % 88.8 % (38.7-80.0); PLATELET COUNT 267 x10e3/uL (140-360); RED BLOOD COUNT 5.06 x10e6/uL (4.3-5.7); RED CELL DISTRIBUTION WIDTH 13.2 % (11.7-14.4)
[2019-06-09 16:57] LABS: ANION GAP 12.4 mmol/L (8-16); CALCIUM 9.5 mg/dL (8.4-10.2); CREATININE, SERUM 1.36 mg/dL (0.72-1.25); POTASSIUM 4.4 mmol/L (3.5-5.1)
--- NOTE | 2019-06-09 17:03 | Diagnostic Imaging Report ---
EXAMINATION: CHEST 2 VIEWS INDICATION: Pre-operative COMPARISON: None FINDINGS: TUBES and LINES: None. LUNGS: The lung volumes are normal. No focal consolidation or pulmonary edema. PLEURA: No pleural effusion or pneumothorax. HEART AND MEDIASTINUM: The cardiomediastinal silhouette is normal in size and contour. BONES AND SOFT TISSUES: No acute fracture or dislocation. Mild degenerative changes of the visualized spine. UPPER ABDOMEN: No free air under the diaphragm. IMPRESSION: No focal pneumonia or pulmonary edema. Signed by: Tameka Kaba MD on 06/09/2019 4:59 PM
[~2019-06-10] MED LIST changes: +B&O 60MG R/S 60 MG SUPP PR ONE; -BELLADONNA/OPIUM 30 MG SUPP RC ONE; +DESFLURANE 240 ML BTL INH ONE; -DEXAMETHASONE SOD PHOS INJ 4 MG/ML VIAL ONE; +FENTANYL CITRATE/PF 100MCG/2 ML INJ ONE; +GABAPENTIN300 MG PO; -GENTAMICIN 120MG/NS 100ML 100 ML ONE; +GLUCOSAMINE1000 MG PO; +LASIX40 MG PO; +PROBIOTICS PO; -SEVOFLURANE INHAL SOLN 250 ML PEN BTL ONE
--- OUTSIDE RECORDS SUMMARY | 2019-06-10 09:11 | XMS REPORT | Clinical Summary ---
Author Author [facility] Address Unknown Phone Unavailable Care Team Providers Care Shells Inspector Name Role Phone Idalia Appiah MD PCP Allergies No Known Allergies Medications End Date Status Medication Sig Dispensed Refills Start Date Active TOPROL XL 25 mg 24 hr Take 25 mg by 0 09/04/201 tablet mouth every 6 morning. Active ranitidine (ZANTAC) 300 Take 300 mg 0 10/19/201 MG tablet by mouth 6 nightly. Active DILT-XR 180 mg 24 hr Take 180 mg 0 201 capsule by mouth 6 every morning. Active [...] 09/23/201 MG tablet mouth 7 nightly. Active jsqdadbb-toy-LY-lycopen-l Take 1 tablet 0 utein (CENTRUM SILVER [...] a day. Or ears BID for itching 11/07/2018 Discontinued hydrocortisone 1 % cream Apply [...] Encounters Care Team Description Date Type Specialty Kuldeep Schneider MD Disorder of lung 01/16/2019 Hospital Radiology Encounter Kuldeep Schneider MD Disorder of lung (Primary Dx) 01/09/2019 Transcribe Access Orders Juanita Millan MD Excessive cerumen in both ear canals (Primary Dx); Dermatitis of external ear; Allergic rhinitis, unspecified seasonality, unspecified trigger 11/07/2018 Office Visit Otolaryngology Kuldeep Schneider MD Disease of lung 07/10/2018 Hospital Radiology Encounter Kuldeep Schneider MD Disease of lung (Primary Dx) 07/05/2018 Transcribe Access Orders after 06/09/2018 Immunizations Name Dates Previously Given Next Due Influenza Trivalent 12/28/2016 Pneumococcal Conjugate 12/28/2016 13-Valent Family History Medical History Relation Name Comments Heart failure Father Cancer Mother Relation Name Status Comments Father (Age 93) Mother (Age 63) Social History Date Tobacco Use Types Packs/Day Years Used 1853 - 1963 Former Smoker 10 Smokeless Tobacco: Never Used [...] Taken Vital Sign Reading 11/07/2018 9:39 AM [employer] OPERATOR Blood Pressure 150/73 11/07/2018 9:39 AM [employer] OPERATOR Pulse 84 - Temperature - - Respiratory Rate - - Oxygen Saturation - - Inhaled Oxygen - Concentration 11/07/2018 9:39 AM [employer] OPERATOR Weight 91.6 kg (202 lb) 11/07/2018 9:39 AM [employer] OPERATOR Height 180.3 cm (5' 11") 11/07/2018 9:39 AM [employer] OPERATOR Body Mass Index 28.17 Plan of Treatment Health Maintenance Due Date Last Done Comments SHINGLES VACCINES (#1) 02/29/1988 65+ PNEUMOCOCCAL VACCINE 12/28/2017 12/28/2016 (2 of 2 - PPSV23) INFLUENZA VACCINE 06/25/2019 12/28/2016 Procedures Comments Procedure Name Priority Date/Time Associated Diagnosis CT CHEST WO CONTRAST Routine 01/16/2019 Disorder of lung 10:27 AM [employer] OPERATOR CT CHEST WO CONTRAST Routine 07/10/2018 Disease of lung 12:24 PM CDT after 06/09/2018 Results * CT Chest Wo Contrast (01/16/2019 10:27 AM [employer] OPERATOR) Only the most recent of 2 results within the time period is included. Specimen Narrative Performed At Study:CT CHEST WO CONTRAST [facility] History: J98.4 Other disorders of lung, J98.4 COMPARISON: July 10, 2018 TECHNIQUE: Multiple axial CT images of the chest performed Without IV contrast.. Coronal and sagittal reconstructions were done. CT imaging was performed with iterative reconstruction technique and/or automated exposure control to reduce radiation dose. FINDINGS: LUNGS: Slight groundglass nodular opacity with central air bronchogram in the right lung apex stable since June 26, 2017 approximately 7 mm . No new nodules. No pulmonary mass. No consolidation, pleural effusion, or pneumothorax. AIRWAYS: No central endobronchial or endotracheal lesions are seen. MEDIASTINUM: The thoracic aorta is without aneurysm. The pulmonary trunk is not dilated. Is enlarged with atherosclerosis of coronary arteries. Small mediastinal lymph nodes stable from prior. No significant pericardial effusion is present. The esophagus is unremarkable. BONES AND OVERLYING SOFT TISSUES: The visualized bones are without destructive lesions. No enlarged axillary lymph nodes present. VISUALIZED LOWER NECK AND UPPER ABDOMEN: Stable. IMPRESSION: Stable somewhat groundglass nodule in the right lung apex. The next CT chest follow-up can be done at 2 years. [id number] Procedure Note Interface, Radiology Results Incoming - 01/16/2019 11:43 AM [employer] OPERATOR Study:CT CHEST WO CONTRAST History: J98.4 Other disorders of lung, J98.4 COMPARISON: July 10, 2018 TECHNIQUE: Multiple axial CT images of the chest performed Without IV contrast.. Coronal and sagittal reconstructions were done. CT imaging was performed with iterative reconstruction technique and/or automated exposure control to reduce radiation dose. FINDINGS: LUNGS: Slight groundglass nodular opacity with central air bronchogram in the right lung apex stable since June 26, 2017 approximately 7 mm . No new nodules. No pulmonary mass. No consolidation, pleural effusion, or pneumothorax. AIRWAYS: No central endobronchial or endotracheal lesions are seen. MEDIASTINUM: The thoracic aorta is without aneurysm. The pulmonary trunk is not dilated. Is enlarged with atherosclerosis of coronary arteries. Small mediastinal lymph nodes stable from prior. No significant pericardial effusion is present. The esophagus is unremarkable. BONES AND OVERLYING SOFT TISSUES: The visualized bones are without destructive lesions. No enlarged axillary lymph nodes present. VISUALIZED LOWER NECK AND UPPER ABDOMEN: Stable. IMPRESSION: Stable somewhat groundglass nodule in the right lung apex. The next CT chest follow-up can be done at 2 years. [id number] Performing Organization Address City/State/Zipcode Phone Number [facility] [id number] [place] [address] after 06/09/2018 Insurance Type Payer Benefit Subscriber ID Effective Phone Address Plan / Dates Group HMO AETNA MEDICARE AETNA xxxxxxxx [id number] MEDICARE resent HMO/PPO [facility] Advance Directives Patient has advance care planning documents, and code status on file. For more i nformation, please contact: Charlie Serrano [address] [place] [address] Date Inactivated Comments Code Status Date Activated 12/11/2017 7:01 PM Full Code 12/10/2017 3:33 PM Code Status decision reached by: Patient
[2019-06-10 14:40] VITALS: BP 145/95
--- NOTE | 2019-08-19 06:38 | Operative Report ---
DATE OF PROCEDURE: 06/10/2019 SURGEON: Jeronimo Wadsworth MD PREOPERATIVE DIAGNOSES: 1. Refractory urge incontinence. 2. Chronic renal insufficiency. POSTOPERATIVE DIAGNOSES: 1. Refractory urge incontinence. 2. Chronic renal insufficiency. OPERATION PERFORMED: 1. Cystourethroscopy with bilateral ureteral catheterization and retrograde ureteropyelography (separate procedure performed for the chronic renal insufficiency). 2. Interpretation of retrograde ureteropyelography. 3. Supervision of fluoroscopy, no radiologist present. 4. Cystourethroscopy with intravesical injection of Botox (separate procedure performed for the incontinence). ANESTHESIA: General. COMPLICATIONS: None. CLINICAL SUMMARY: Gunnar Taylor is an 79-year-old man with previous urological surgery. He has incontinence. He was brought for the above procedures. He is aware of the risks of bleeding, infection, injury to adjacent structures, need for additional procedures, and elected to proceed. OPERATIVE PROCEDURE IN DETAIL: Informed consent was verified. Gunnar Taylor was properly identified, taken to the operating room, placed on the cystoscopy table in supine position. Anesthesia was uneventfully begun. The patient was then carefully and gently repositioned in dorsal lithotomy position with all pressure points well padded. His genitalia were prepared and draped in usual sterile fashion. The cystoscope sheath with visual obturator in place was atraumatically inserted in the patient's urethra, was guided unremarkable urethra through the normal sphincteric region into the patient's bladder. Panendoscopy revealed grade 1 to 2 trabeculations, but no tumors, no stones, and no diverticula. Normally positioned configured ureteral orifices were identified. An 8-Czech catheter was used to cannulate each ureter and retrograde ureteropyelograms were performed. Interpretation of retrograde ureteropyelography contrast was instilled in retrograde fashion bilaterally. There were no tumors, no stones, and no diverticula. Unobstructed drainage was observed bilaterally fluoroscopically. There was some medial deviation of both ureters at the level of the pelvic inlet. Botox was dissolved in sterile saline and it was then injected 1 mL aliquots in an even distribution throughout the supratrigonal bladder. The patient's bladder was drained and cystoscope was withdrawn. Belladonna and opium suppository were placed, and the patient was uneventfully reversed from anesthesia and taken to recovery room in stable condition. There were no complications procedure at the end of the procedure. He tolerated the procedure well. Explicit postoperative instructions were given and we will follow the patient up in the office and of course on a long-term basis. MD OSIEL Dixon/AUTUMN /[id number]
== END | disposition home or self-care (01) ==
LOC: OR 08:56
PROVIDERS: ATTEND Urology
DX: N39.41 Urge incontinence (principal); I12.9 Hypertensive chronic kidney disease with stage 1 through stage 4 chronic kidney disease, or unspecified chronic kidney disease; N18.9 Chronic kidney disease, unspecified; N32.89 Other specified disorders of bladder; I25.10 Atherosclerotic heart disease of native coronary artery without angina pectoris; K21.9 Gastro-esophageal reflux disease without esophagitis; M19.90 Unspecified osteoarthritis, unspecified site; M71.9 Bursopathy, unspecified; G62.9 Polyneuropathy, unspecified; Z01.810 Encounter for preprocedural cardiovascular examination; Z01.812 Encounter for preprocedural laboratory examination; Z01.818 Encounter for other preprocedural examination; Z79.02 Long term (current) use of antithrombotics/antiplatelets; Z95.5 Presence of coronary angioplasty implant and graft; Z87.891 Personal history of nicotine dependence
CPT/HCPCS: 36415; 52005; 52287; 71046; 74420; 80048; 85025; 93005; C1758; J0587; J0696; J2001; J2405; J2704; J3010; Q9967

== ENCOUNTER → 2020-03-21 | Day surgery (SDC) | payer MEDICARE ==
--- NOTE | 2020-03-17 09:45 | Diagnostic Imaging Report ---
EXAMINATION: CHEST 2 VIEWS INDICATION: Pre-operative COMPARISON: 06/09/2019 chest radiograph FINDINGS: LINES/TUBES:None LUNGS:The lungs are well-inflated. No focal consolidation or pulmonary edema. PLEURA:No pleural effusion or pneumothorax. MEDIASTINUM:The cardiomediastinal silhouette appears normal in size and shape. BONES/SOFT TISSUES:No acute osseous injury. ABDOMEN:No free air under the diaphragm. Status post cholecystectomy. IMPRESSION: No focal pneumonia or pulmonary edema. Signed by: Tameka Kaba MD on 03/17/2020 9:42 AM
[~2020-03-21] MED LIST changes: -DESFLURANE 240 ML BTL INH ONE; +DEXAMETHASONE SOD PHOS INJ 4 MG/ML VIAL ONE; -FENTANYL CITRATE/PF 100MCG/2 ML INJ ONE; +IOPAMIDOL 300MG/ML 50ML INFUS..BTL IV ONE; -IOPAMIDOL 610MG/1ML 300 MG/ML VIAL IV ONE; +SEVOFLURANE INHAL SOLN 250 ML PEN BTL ONE
[2020-03-21 08:10] VITALS: BP 164/94
--- NOTE | 2020-03-21 12:48 | Operative Report ---
DATE OF PROCEDURE: 03/21/2020 SURGEON: Jeronimo Wadsworth MD PREOPERATIVE DIAGNOSES: 1. Refractory urge incontinence, that has recurred. 2. Chronic renal insufficiency. POSTOPERATIVE DIAGNOSES: 1. Refractory urge incontinence, that has recurred. 2. Chronic renal insufficiency. OPERATIONS PERFORMED: 1. Cystourethroscopy with bilateral retrograde ureteropyelography (separate procedure performed for the chronic renal insufficiency). 2. Interpretation of retrograde ureteropyelography. 3. Supervision of fluoroscopy, no radiologist present. 4. Cystourethroscopy with intravesical injection of Botox (separate procedure performed for the refractory incontinence). ANESTHESIA: General. COMPLICATIONS: None. CLINICAL SUMMARY: Gunnar Villarreal is an 80-year-old male with prostate cancer, status post radical retropubic prostatectomy by somebody else. The patient has had Botox injections, it has been quite sometime, the COVID emergency situation has delayed his regular schedule Botox and he has started having recurrence of his incontinence, to maintain adequate quality of life the patient wants to proceed with this procedure despite the COVID-19 emergency situation. He is aware of the risks of bleeding, infection, injury to adjacent structures, need for additional procedures, and elected to proceed. This procedure should not be taxing, the healthcare system with PPE shortage due to the fact this is a very brief stay surgery that will not require admission. OPERATIVE PROCEDURE IN DETAIL: Informed consent was verified. Gunnar Villarreal was properly identified, taken to the operating room, and placed on the cystoscopy table in supine position. Anesthesia was uneventfully begun. The patient was then carefully and gently repositioned dorsal lithotomy position with all pressure points well padded. His genitalia were prepared and draped in usual sterile fashion. The cystoscope sheath with visual obturator in place was atraumatically inserted into the patient's urethra, it was guided unremarkably distal urethra through the normal sphincteric region through the wide-open urethrovesical anastomosis and into the patient's bladder, where there were grade 2 trabeculations, but no tumors, no stones, no diverticula. Normally positioned and configured ureteral orifices were identified. Ureteral catheter was used to cannulate each ureter and retrograde ureteral pyelograms were performed. Interpretation of retrograde ureteropyelography contrast was instilled in retrograde fashion bilaterally. There were no tumors, no stones, no diverticula. Unobstructed drainage was observed bilaterally fluoroscopically. 100 units of Botox were dissolved in 10 mL of sterile saline and they were injected in 0.5 mL aliquots in an even distribution in the supratrigonal bladder. The patient's bladder was drained. Cystoscope was withdrawn. The belladonna and opium suppository were placed. The patient was uneventfully reversed from anesthesia and taken to recovery room in stable condition. There were no complications to the procedure. He tolerated the procedure well. Explicit postop instructions were given and we will follow the patient up in the office. Jeronimo MD Ermelinda [place]/MODL /[id number] cc: Idalia Appiah MD
== END | disposition home or self-care (01) ==
LOC: OR 05:31
PROVIDERS: ATTEND Urology
DX: N39.41 Urge incontinence (principal); N18.9 Chronic kidney disease, unspecified; C61 Malignant neoplasm of prostate; Z98.890 Other specified postprocedural states; N32.89 Other specified disorders of bladder; G47.33 Obstructive sleep apnea (adult) (pediatric); I25.10 Atherosclerotic heart disease of native coronary artery without angina pectoris; I10 Essential (primary) hypertension; I48.91 Unspecified atrial fibrillation; K21.9 Gastro-esophageal reflux disease without esophagitis; M19.90 Unspecified osteoarthritis, unspecified site; M71.9 Bursopathy, unspecified; G62.9 Polyneuropathy, unspecified; Z01.810 Encounter for preprocedural cardiovascular examination; Z01.812 Encounter for preprocedural laboratory examination; Z01.818 Encounter for other preprocedural examination; Z79.02 Long term (current) use of antithrombotics/antiplatelets; Z11.59 Encounter for screening for other viral diseases; Z95.5 Presence of coronary angioplasty implant and graft; Z87.891 Personal history of nicotine dependence
CPT/HCPCS: 52005; 52287; 71046; 74420; 87635; 93005; J0587; J0696; J1100; J2001; J2405; J2704; Q9967

== ENCOUNTER → 2020-07-27 | Day surgery (SDC) | payer MEDICARE, OTHER ==
[2020-07-22 14:23] LABS: BASOPHILS # (AUTO) 0.1 (0.0-0.1); BASOPHILS % 0.9 % (0.0-1.0); EOSINOPHILS # (AUTO) 0.3 (0.0-0.4); EOSINOPHILS % 3.7 % (0.0-6.0); HEMATOCRIT 47.8 % (38.2-49.6); HEMOGLOBIN 15.5 g/dL (14.0-18.0); LYMPHOCYTES # (AUTO) 1.4 (1.0-3.2); MEAN CORPUSCULAR HEMOGLOBIN 29.3 pg (28-32); MEAN CORPUSCULAR HGB CONC 32.4 g/dL (31-35); MEAN CORPUSCULAR VOLUME 90.4 fL (81-99); MONOCYTES # (AUTO) 0.7 (0.2-0.8); MONOCYTES % 9.9 % (4.4-11.3); NEUTROPHILS % 67.2 % (38.7-80.0); PLATELET COUNT 220 x10e3/uL (140-360); RED BLOOD COUNT 5.29 x10e6/uL (4.3-5.7); RED CELL DISTRIBUTION WIDTH 13.2 % (11.7-14.4)
[2020-07-22 14:38] LABS: ANION GAP 15.3 mmol/L (8-16); CALCIUM 9.5 mg/dL (8.4-10.2); CREATININE, SERUM 1.29 mg/dL (0.72-1.25); POTASSIUM 4.3 mmol/L (3.5-5.1)
[~2020-07-27] MED LIST changes: +CRESTOR5 MG PO; +FENTANYL CITRATE/PF 100MCG/2 ML INJ ONE; +FUROSEMIDE40 MG PO; +MIRALAX17 GM PO
[2020-07-27 08:50] VITALS: BP 143/90
== END | disposition home or self-care (01) ==
LOC: OR 05:27
PROVIDERS: ATTEND Urology
DX: N39.41 Urge incontinence (principal); N32.89 Other specified disorders of bladder; I12.9 Hypertensive chronic kidney disease with stage 1 through stage 4 chronic kidney disease, or unspecified chronic kidney disease; N18.9 Chronic kidney disease, unspecified; G47.33 Obstructive sleep apnea (adult) (pediatric); K21.9 Gastro-esophageal reflux disease without esophagitis; I25.10 Atherosclerotic heart disease of native coronary artery without angina pectoris; I48.91 Unspecified atrial fibrillation; Z79.02 Long term (current) use of antithrombotics/antiplatelets; Z01.810 Encounter for preprocedural cardiovascular examination; Z01.812 Encounter for preprocedural laboratory examination; Z11.59 Encounter for screening for other viral diseases; Z85.46 Personal history of malignant neoplasm of prostate; Z95.5 Presence of coronary angioplasty implant and graft
CPT/HCPCS: 36415; 52005; 52287; 74420; 80048; 85025; 93005; C1758; J0587; J0696; J1100; J2001; J2405; J2704; J3010; Q9967; U0002

== ENCOUNTER → 2021-07-21 | Day surgery (SDC) | payer MEDICARE ==
[2021-07-20 09:54] LABS: BASOPHILS # (AUTO) 0.1 (0.0-0.1); EOSINOPHILS # (AUTO) 0.4 (0.0-0.4); EOSINOPHILS % 5.8 % (0.0-6.0); HEMATOCRIT 48.4 % (38.2-49.6); HEMOGLOBIN 15.4 g/dL (14.0-18.0); LYMPHOCYTES # (AUTO) 1.2 (1.0-3.2); LYMPHOCYTES % 16.3 % (18.0-39.1); MEAN CORPUSCULAR HEMOGLOBIN 29.6 pg (28-32); MEAN CORPUSCULAR HGB CONC 31.8 g/dL (31-35); MEAN CORPUSCULAR VOLUME 92.9 fL (81-99); MONOCYTES # (AUTO) 0.8 (0.2-0.8); MONOCYTES % 10.6 % (4.4-11.3); NEUTROPHILS # (AUTO) 4.7 (2.1-6.9); NEUTROPHILS % 65.9 % (38.7-80.0); PLATELET COUNT 226 x10e3/uL (140-360); RED BLOOD COUNT 5.21 x10e6/uL (4.3-5.7)
[2021-07-20 10:11] LABS: ANION GAP 12.4 mmol/L (8-16); CALCIUM 10.2 mg/dL (8.4-10.2); CREATININE, SERUM 1.42 mg/dL (0.72-1.25); POTASSIUM 4.4 mmol/L (3.5-5.1)
[2021-07-20 10:26] LABS: INR 0.98; PROTHROMBIN TIME 13.2 seconds (11.9-14.5)
[2021-07-20 10:27] LABS: PARTIAL THROMBOPLASTIN TIME 27.4 seconds (23.8-35.5)
[~2021-07-21] MED LIST changes: +AMLODIPINE BESY10 MG PO; -B&O 60MG R/S 60 MG SUPP PR ONE; +BELLADONNA/OPIUM 30 MG SUPP RC ONE; +CEFTRIAXONE 1 GM VIAL ONE; -CEFTRIAXONE SOD 1 GM/NS 50 ML 50 ML IV ONE; -DEXAMETHASONE SOD PHOS INJ 4 MG/ML VIAL ONE; -FENTANYL CITRATE/PF 100MCG/2 ML INJ ONE; -LIDOCAINE HCL 2% LOCAL INJ 5 ML SDV VIAL INJ ONE; +LOSARTAN POTASS25 MG PO; -ONDANSETRON HCL INJ 2MG/ML 2ML 2 MG/ML VIAL ONE; -PROPOFOL IV EMULSION 10 MG/ML 20 ML VIAL ONE; -SEVOFLURANE INHAL SOLN 250 ML PEN BTL ONE; +SODIUM CHLORIDE 0.9% 50ML 50 ML ONE; +TAGAMET HB200 MG PO; +VITAMIN D310 MCG PO
[2021-07-21 14:21] VITALS: BP 162/89
== END | disposition home or self-care (01) ==
LOC: OR 09:12
PROVIDERS: ATTEND Urology
DX: C61 Malignant neoplasm of prostate (principal); N39.46 Mixed incontinence; K42.9 Umbilical hernia without obstruction or gangrene; N39.44 Nocturnal enuresis; E66.9 Obesity, unspecified; N50.0 Atrophy of testis; I86.1 Scrotal varices; N32.81 Overactive bladder; N52.9 Male erectile dysfunction, unspecified; N31.9 Neuromuscular dysfunction of bladder, unspecified; N28.1 Cyst of kidney, acquired; Z68.29 Body mass index [BMI] 29.0-29.9, adult; Z01.810 Encounter for preprocedural cardiovascular examination; Z01.812 Encounter for preprocedural laboratory examination; Z01.818 Encounter for other preprocedural examination; Z20.822 Contact with and (suspected) exposure to COVID-19; K21.9 Gastro-esophageal reflux disease without esophagitis; I10 Essential (primary) hypertension; I25.10 Atherosclerotic heart disease of native coronary artery without angina pectoris; N18.9 Chronic kidney disease, unspecified; N35.919 Unspecified urethral stricture, male, unspecified site
CPT/HCPCS: 36415; 52281; 71046; 74420; 80048; 85025; 85610; 85730; 93005; J0587; J0696; Q9967; U0002

== ENCOUNTER → 2022-05-16 | Day surgery (SDC) | payer MEDICARE ==
[2022-05-14 13:54] LABS: BASOPHILS # (AUTO) 0.1 (0.0-0.1); BASOPHILS % 1.2 % (0.0-1.0); EOSINOPHILS # (AUTO) 0.4 (0.0-0.4); EOSINOPHILS % 4.2 % (0.0-6.0); HEMATOCRIT 49.4 % (38.2-49.6); HEMOGLOBIN 15.9 g/dL (14.0-18.0); LYMPHOCYTES # (AUTO) 1.4 (1.0-3.2); LYMPHOCYTES % 16.7 % (18.0-39.1); MEAN CORPUSCULAR HEMOGLOBIN 30.6 pg (28-32); MEAN CORPUSCULAR HGB CONC 32.2 g/dL (31-35); MONOCYTES # (AUTO) 0.9 (0.2-0.8); MONOCYTES % 10.3 % (4.4-11.3); NEUTROPHILS # (AUTO) 5.8 (2.1-6.9); NEUTROPHILS % 67.2 % (38.7-80.0); PLATELET COUNT 215 x10e3/uL (140-360); RED CELL DISTRIBUTION WIDTH 12.6 % (11.7-14.4)
[2022-05-14 14:17] LABS: ANION GAP 14.8 mmol/L (8-16); CALCIUM 10.1 mg/dL (8.4-10.2); CREATININE, SERUM 1.62 mg/dL (0.72-1.25); POTASSIUM 4.8 mmol/L (3.5-5.1)
[~2022-05-16] MED LIST changes: +B&O 60MG R/S 60 MG SUPP PR ONE; -BELLADONNA/OPIUM 30 MG SUPP RC ONE; -CEFTRIAXONE 1 GM VIAL ONE; +DEXAMETHASONE SOD PHOS INJ 4 MG/ML SDV ONE; +FENTANYL CITRATE/PF 100MCG/2 ML INJ ONE; +GENTAMICIN 80MG/NS 100 ML 200 ML IV ONE; -IOPAMIDOL 300MG/ML 50ML INFUS..BTL IV ONE; +IOPAMIDOL 610MG/1ML 300 MG/ML VIAL IV ONE; +LIDOCAINE HCL 2% LOCAL INJ 5 ML SDV VIAL INJ ONE; +ONDANSETRON HCL INJ 2MG/ML 2ML 2 MG/ML VIAL ONE; +POVIDONE IODINE 0.05% 0.05 % ML PO ONE; +PROPOFOL IV EMULSION 10 MG/ML 20 ML VIAL ONE; +SEVOFLURANE INHAL SOLN 250 ML PEN BTL ONE; -SODIUM CHLORIDE 0.9% 50ML 50 ML ONE
[2022-05-16 12:42] VITALS: BP 137/74
== END | disposition home or self-care (01) ==
LOC: OR 07:58
PROVIDERS: ATTEND Urology
DX: N39.41 Urge incontinence (principal); I12.9 Hypertensive chronic kidney disease with stage 1 through stage 4 chronic kidney disease, or unspecified chronic kidney disease; N18.30 Chronic kidney disease, stage 3 unspecified; N32.89 Other specified disorders of bladder; R53.83 Other fatigue; I25.10 Atherosclerotic heart disease of native coronary artery without angina pectoris; I48.91 Unspecified atrial fibrillation; E66.9 Obesity, unspecified; M19.90 Unspecified osteoarthritis, unspecified site; Z01.812 Encounter for preprocedural laboratory examination; Z20.822 Contact with and (suspected) exposure to COVID-19; Z01.810 Encounter for preprocedural cardiovascular examination; Z79.02 Long term (current) use of antithrombotics/antiplatelets; Z79.899 Other long term (current) drug therapy; Z68.30 Body mass index [BMI] 30.0-30.9, adult; Z98.890 Other specified postprocedural states; Z85.46 Personal history of malignant neoplasm of prostate; Z86.2 Personal history of diseases of the blood and blood-forming organs and certain disorders involving the immune mechanism; Z95.5 Presence of coronary angioplasty implant and graft; Z98.0 Intestinal bypass and anastomosis status
CPT/HCPCS: 36415; 52005; 52287; 74420; 80048; 85025; 93005; C1758; J0587; J1100; J1580; J2001; J2405; J2704; J3010; Q9967; U0002

== ENCOUNTER → 2024-12-23 | Day surgery (SDC) | payer MEDICARE ==
[~2024-12-23] MED LIST changes: +ATROVENT HFA12.9 GM INH; -B&O 60MG R/S 60 MG SUPP PR ONE; +CEFTRIAXONE 1 GM VIAL ONE; +DULERA 50 MCG-513 GM IH; +ETOMIDATE 40 MG/ 20ML VIAL IV ONE; -FENTANYL CITRATE/PF 100MCG/2 ML INJ ONE; -GENTAMICIN 80MG/NS 100 ML 200 ML IV ONE; -IOPAMIDOL 610MG/1ML 300 MG/ML VIAL IV ONE; +PHENYLEPHRINE HCL 1% 10 MG/ML VIAL ONE; -POVIDONE IODINE 0.05% 0.05 % ML PO ONE
[2024-12-23] MEDS: LACTATED RINGER'S 1,000 ML ONE (07:43)
[2024-12-23] MEDS: CEFTRIAXONE 1 GM VIAL ONE (07:44)
[2024-12-23 08:29] LABS: INR 0.94; PROTHROMBIN TIME 13.1 seconds (11.9-14.5)
[2024-12-23 08:30] LABS: PARTIAL THROMBOPLASTIN TIME 30.6 seconds (23.8-35.5)
[2024-12-23 08:47] LABS: ANION GAP 18.4 mmol/L (8-16); CALCIUM 9.7 mg/dL (8.4-10.2); CREATININE, SERUM 1.48 mg/dL (0.72-1.25)
[2024-12-23 08:49] LABS: POTASSIUM 5.4 mmol/L (3.5-5.1)
[2024-12-23 09:21] LABS: BASOPHILS # (AUTO) 0.1 (0.0-0.1); BASOPHILS % 0.9 % (0.0-1.0); EOSINOPHILS # (AUTO) 0.6 (0.0-0.4); EOSINOPHILS % 6.7 % (0.0-6.0); HEMATOCRIT 45.7 % (38.2-49.6); HEMOGLOBIN 14.1 g/dL (14.0-18.0); LYMPHOCYTES # (AUTO) 1.3 (1.0-3.2); LYMPHOCYTES % 15.1 % (18.0-39.1); MEAN CORPUSCULAR HEMOGLOBIN 29.8 pg (28-32); MEAN CORPUSCULAR HGB CONC 30.9 g/dL (31-35); MEAN CORPUSCULAR VOLUME 96.6 fL (81-99); MONOCYTES % 10.8 % (4.4-11.3); NEUTROPHILS # (AUTO) 5.8 (2.1-6.9); NEUTROPHILS % 66.2 % (38.7-80.0); PLATELET COUNT 199 x10e3/uL (140-360); RED BLOOD COUNT 4.73 x10e6/uL (4.3-5.7); WHITE BLOOD COUNT 8.81 x10e3/uL (4.8-10.8)
[2024-12-23 10:33] VITALS: TEMP 99
[2024-12-23] MEDS: PHENAZOPYRIDINE HCL 100 MG TAB ONE (11:05)
[2024-12-23 11:55] VITALS: BP 147/85; PULSE 73; RESP 16; O2SAT 95
== END | disposition home or self-care (01) ==
LOC: OR 06:40
PROVIDERS: ATTEND Urology
DX: N39.41 Urge incontinence (principal); N39.0 Urinary tract infection, site not specified; I12.9 Hypertensive chronic kidney disease with stage 1 through stage 4 chronic kidney disease, or unspecified chronic kidney disease; N18.9 Chronic kidney disease, unspecified; Z98.0 Intestinal bypass and anastomosis status; N32.89 Other specified disorders of bladder; E78.5 Hyperlipidemia, unspecified; J45.909 Unspecified asthma, uncomplicated; Z79.02 Long term (current) use of antithrombotics/antiplatelets; Z79.899 Other long term (current) drug therapy
CPT/HCPCS: 36415; 52005; 52287; 74420; 80048; 85025; 85610; 85730; 93005; C1758; J0587; J0696; J1100; J2003; J2371; J2405; J2704; J7121